=== PATIENT | female | born 1945 | race African-American/Black ===

== ENCOUNTER 2016-10-27 07:09 | Observation (INO) ==
--- NOTE | 2016-10-27 07:16 | Emergency Department Note ---
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 She has had something similar this once before she could not remember if it was her heart enzymes were elevated or if it was pleurisy. She has not had a fever she does feel short of breath Pt Subjective Complaint: other (epigastric pain radiating to her back) Onset (ago): day(s) (1) Consistency: constant Location: epigastric Pain Severity: moderate Pain Scale: 5 Quality: stabbing Radiation: back Migration to: no migration Improves with: nothing Worsens with: nothing Associated symptoms: Reports: denies other symptoms - Related Data Home Medications Medication Instructions Recorded Confirmed Calcium Carbonate/Vitamin D3 81 mg PO DAILY 04/24/15 10/27/16 [Calcium 500-Vit D3 400 Tablet] Loratadine [Claritin] 10 mg PO DAILY 04/24/15 10/27/16 Losartan [Cozaar] 25 mg PO DAILY 04/24/15 10/27/16 Paroxetine [Paxil] 20 mg PO DAILY 04/24/15 10/27/16 Ranitidine Oral Soln [Zantac] 150 mg PO DAILY 04/24/15 10/27/16 Simvastatin [Zocor] 40 mg PO HS 04/24/15 10/27/16 metFORMIN [Glucophage] 1,000 mg PO BIDWM 04/24/15 10/27/16 Aspirin [Adult Low Dose Aspirin EC] 81 mg PO DAILY 04/25/15 10/27/16 Previous Rx's Medication Instructions Recorded Omeprazole [PriLOSEC] 20 mg PO BIDAC #30 capsule. 04/24/15 Tramadol HCl [Ultram] 50 mg PO TID PRN #10 tab 01/31/16 Allergies Allergy/AdvReac Type Severity Reaction Status Date / Time celecoxib [From Celebrex] AdvReac Rash Verified 02/16/16 16:45 naproxen [From Aleve] AdvReac Rash Verified 02/16/16 16:45 pseudoephedrine AdvReac Rash Verified 02/16/16 16:45 [From Actifed] triprolidine [From Actifed] AdvReac Rash Verified 02/16/16 16:45 All systems ED: reviewed and negative except as stated. Review of Systems: As Per HPI Constitutional: Denies: fever, chills, weakness, weight change Eyes: Reports: as per HPI ENT ED: Denies: ear pain, throat pain, dental pain, hearing loss, epistaxis, congestion, dysphagia Cardiovascular: Reports: chest pain. Denies: palpitations, dyspnea on exertion , edema, syncope Respiratory: Denies: cough, dyspnea, wheezes, hemoptysis, stridor Gastrointestinal: Denies: abdominal pain, nausea, vomiting, diarrhea, constipation, hematemesis, melena, hematochezia Genitourinary: Denies: dysuria, frequency, hematuria, discharge Musculoskeletal: Denies: back pain, neck pain, arthralgia, myalgia Integumentary: Denies: rash, abrasion, lesions Neurological: Denies: headache, weakness, numbness, paresthesias, confusion, abnormal gait, vertigo Psychiatric: Denies: anxiety, depression, suicidal thoughts, homicidal thoughts , auditory hallucinations, visual hallucinations Endocrine: Denies: fatigue Hematological/Lymphatic: Denies: easy bleeding, easy bruising Allergic/Immunologic: Denies: facial swelling, urticaria Abdominal Pain PMH - Past Medical History Medical history: Reports: arthritis (axial skeleton), asthma, COPD, diabetes, GERD, hyperlipidemia, hypertension, other (Obstructive sleep apnea on CPAP, morbid obesity) Female Surgical History: Reports: other 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: Reports: bilateral tubal ligation Psychiatric history: Reports: depression - Social History Smoking status: Never smoker Alcohol use: Reports: none Drug use: Reports: none Physical Exam - General Limitations: no limitations General appearance: alert, in no apparent distress - Head Head exam: atraumatic, normocephalic, normal inspection - Eye Eye exam: Present: normal appearance, PERRL, EOMI - ENT ENT exam: normal exam, normal oropharynx, mucous membranes moist - Neck Neck exam: Present: normal inspection, full ROM, trachea midline - Chest Chest inspection: Present: normal inspection, symmetric chest wall rise - Respiratory Respiratory exam: Present: normal lung sounds bilaterally. Absent: respiratory distress - Cardiovascular Cardiovascular exam: Present: regular rate, normal rhythm, normal heart sounds - Abdominal Exam Abdominal exam: Present: soft, Non-Tender. Absent: tenderness, distention, guarding, rebound, rigidity - Neurological Exam Neurological exam: Present: alert, oriented X3 - Psychiatric Psychiatric exam: Present: normal affect - Skin Skin exam: Present: warm, dry Course Course Narrative: 0800: Care has been assumed from Dr. dailey. Old record is reviewed and she has had several presentations that have been similar. She did have a stress test that was reported to be negative at [facility]. She states that her discomfort is improved at this time "with the IV". 0825: The patient's lab, EKG and x-ray have been reviewed. Her EKG is unchanged from September 16. Her d-dimer is again elevated and a CT PE study will be repeated. She did have a CT PE study performed on September 16 that was negative. 0950: With return of the CT PE study, care has been discussed with Dr. Linares who is agreeable with observation of this patient for serial enzymes. This is discussed the patient and verbal orders have been obtained for her observation period Vital Signs Temperature 98.0 F 10/27/16 07:12 Pulse Rate 88 10/27/16 07:12 Respiratory Rate 18 10/27/16 07:12 Blood Pressure 137/67 10/27/16 07:12 O2 Sat by Pulse Oximetry 98 10/27/16 07:12 Temperature 98.0 F 10/27/16 07:12 Pulse Rate 61 10/27/16 09:32 Respiratory Rate 18 10/27/16 09:32 Blood Pressure 109/59 10/27/16 09:32 O2 Sat by Pulse Oximetry 98 10/27/16 09:32 Oxygen Delivery Oxygen Delivery Room Air Abdominal Pain - Medical Records Medical records reviewed: Yes I reviewed the patient's medical records. - Lab Data Lab results reviewed: Yes I reviewed the patient's lab results. Result diagrams: 10/27/16 07:25 10/27/16 07:25 Lab Results 10/27/16 10/27/16 10/27/16 Range/Units 07:25 07:25 07:25 WBC 8.6 (4.3-11.1) K/mcL RBC 4.14 (3.82-4.97) M/mcL Hgb 13.0 (11.5-15.4) g/dL Hct 38.5 (35.3-44.9) % MCV 93.0 (83.0-100.0) fL MCH 31.4 (28.0-33.3) pg MCHC 33.8 (31.6-35.5) g/dL RDW 13.3 (11.5-14.5) % Plt Count 304 (140-400) K/mcL MPV 9.4 (9.4-12.4) fL PT 10.6 (9.4-12.1) Seconds INR 1.0 APTT 33.2 (26.0-36.0) Seconds D-Dimer 1049 H (0-500) ng/mLFEU Sodium 139 (136-145) mEq/L Potassium 4.0 (3.5-4.5) mEq/L Chloride 104 (98-109) mEq/L Carbon Dioxide 25 (19-29) mEq/L BUN 6 L (7-20) mg/dL Creatinine 0.74 (0.57-1.11) mg/dL Est GFR ( Amer) > 60 (> 60) Est GFR (Non-Af Amer) > 60 (> 60) BUN/Creatinine Ratio 8 (6-26) Glucose 131 H (70-99) mg/dL Calculated Osmolality 287 (280-300) Calcium 9.1 (8.6-10.8) mg/dL Total Bilirubin 0.6 (0.2-1.2) mg/dL AST 17 (5-34) Units/L ALT 12 (0-55) Units/L Alkaline Phosphatase 96 (38-126) Units/L Troponin I (0-0.03) ng/mL Serum Total Protein 7.1 (6.0-8.3) g/dL Albumin 3.3 L (3.5-5.0) g/dL Globulin 3.8 H (2.4-3.5) g/dL Albumin/Globulin Ratio 0.9 L (1.1-2.2) Urine Color (Yellow) Urine Clarity (Clear) Urine pH (5.0-8.0) pH Units Ur Specific [place] (1.010-1.025) Urine Protein (Neg-Trace) mg/dL Urine Glucose (UA) (Normal) mg/dL Urine Ketones (Negative) mg/dL Urine Blood (Negative) Urine Nitrite (Negative) Urine Bilirubin (Negative) Urine Urobilinogen (Normal) mg/dL Ur Leukocyte Esterase (Negative) Urine Microscopic RBC (0-3) per hpf Urine Microscopic WBC (0-3) per hpf Ur Squamous Epith Cells (None-Few) per lpf Amorphous Sediment (Few) Urine Bacteria (None-Few) per hpf Urine Mucus (Few) Ur Culture Indicated? (NO) 10/27/16 10/27/16 Range/Units 07:25 08:27 WBC (4.3-11.1) K/mcL RBC (3.82-4.97) M/mcL Hgb (11.5-15.4) g/dL Hct (35.3-44.9) % MCV (83.0-100.0) fL MCH (28.0-33.3) pg MCHC (31.6-35.5) g/dL RDW (11.5-14.5) % Plt Count (140-400) K/mcL MPV (9.4-12.4) fL PT (9.4-12.1) Seconds INR APTT (26.0-36.0) Seconds D-Dimer (0-500) ng/mLFEU Sodium (136-145) mEq/L Potassium (3.5-4.5) mEq/L Chloride (98-109) mEq/L Carbon Dioxide (19-29) mEq/L BUN (7-20) mg/dL Creatinine (0.57-1.11) mg/dL Est GFR ( Amer) (> 60) Est GFR (Non-Af Amer) (> 60) BUN/Creatinine Ratio (6-26) Glucose (70-99) mg/dL Calculated Osmolality (280-300) Calcium (8.6-10.8) mg/dL Total Bilirubin (0.2-1.2) mg/dL AST (5-34) Units/L ALT (0-55) Units/L Alkaline Phosphatase (38-126) Units/L Troponin I 0.00 (0-0.03) ng/mL Serum Total Protein (6.0-8.3) g/dL Albumin (3.5-5.0) g/dL Globulin (2.4-3.5) g/dL Albumin/Globulin Ratio (1.1-2.2) Urine Color Yellow (Yellow) Urine Clarity Slightly Cloudy A (Clear) Urine pH 8.5 H (5.0-8.0) pH Units Ur Specific [place] 1.020 (1.010-1.025) Urine Protein Negative (Neg-Trace) mg/dL Urine Glucose (UA) Normal (Normal) mg/dL Urine Ketones Negative (Negative) mg/dL Urine Blood Negative (Negative) Urine Nitrite Negative (Negative) Urine Bilirubin Negative (Negative) Urine Urobilinogen Normal (Normal) mg/dL Ur Leukocyte Esterase Moderate H (Negative) Urine Microscopic RBC 3-5 H (0-3) per hpf Urine Microscopic WBC 15-30 H (0-3) per hpf Ur Squamous Epith Cells Few (None-Few) per lpf Amorphous Sediment Few (Few) Urine Bacteria Moderate H (None-Few) per hpf Urine Mucus Few (Few) Ur Culture Indicated? YES A (NO) - Radiology Data Radiology results reviewed: Yes I reviewed the patient's radiology results. Single view chest x-ray is performed. This does not demonstrate evidence for infiltrate, effusion, pneumothorax, foreign body or heart failure. The cardiac silhouette is normal. I do not see abnormality to the osseous structures of the chest. This is on my interpretation. Radiologist impression: XR/XR chest 1V portable IMPRESSION: Minimal bibasilar atelectasis. D/ / Andrea Lazcano MD / Andrea Lazcano MD Impressions Chest X-Ray 10/27/16 07:21 IMPRESSION: Minimal bibasilar atelectasis. D/ / Andrea Lazcano MD / Andrea Lazcano MD Interpreting Provider: Andrea Lazcano MD Chest CTA 10/27/16 08:24 IMPRESSION: No evidence of pulmonary embolism or acute pulmonary abnormality. Right thyroid lobe nodule measures at least 1.6 cm. D/ / Natalia Lewis MD / Natalia Lewis MD Interpreting Provider: Natalia Lewis MD - EKG Data EKG attestation: Yes I reviewed and interpreted this EKG. EKG shows normal: sinus rhythm, axis, intervals, QRS complexes, ST-T waves Rate: normal (69) Interpretation: no acute changes, unchanged when compared to prior tracing (date ) (09/16/2016.)
[2016-10-27] MEDS ORDERED: 0.9 % Sodium Chloride 500 ML IVC SCH ×2 (07:30→11:40)
[2016-10-27 07:38] LABS: Hematocrit 38.5 % (35.3-44.9); Mean Corpuscular HGB Conc 33.8 g/dL (31.6-35.5); Mean Corpuscular Hemoglobin 31.4 pg (28.0-33.3); Mean Platelet Volume 9.4 fL (9.4-12.4); Platelet Count 304 K/mcL (140-400); Red Blood Count 4.14 M/mcL (3.82-4.97); Red Cell Distribution Width 13.3 % (11.5-14.5)
[2016-10-27 07:50] LABS: Prothrombin Time 10.6 Seconds (9.4-12.1)
[2016-10-27 07:52] LABS: Activated Partial Thrombo Time 33.2 Seconds (26.0-36.0)
[2016-10-27 08:14] LABS: Alanine Aminotransferase 12 Units/L (0-55); Albumin 3.3 g/dL (3.5-5.0); Albumin/Globulin Ratio 0.9 (1.1-2.2); Alkaline Phosphatase 96 Units/L (38-126); Aspartate Amino Transferase 17 Units/L (5-34); BUN/Creatinine Ratio 8 (6-26); Bilirubin,Total 0.6 mg/dL (0.2-1.2); Blood Urea Nitrogen 6 mg/dL (7-20); Calcium 9.1 mg/dL (8.6-10.8); Carbon Dioxide 25 mEq/L (19-29); Chloride 104 mEq/L (98-109); Globulin 3.8 g/dL (2.4-3.5); Glucose 131 mg/dL (70-99); Osmolality,Calculated 287 (280-300); Sodium 139 mEq/L (136-145); Total Protein 7.1 g/dL (6.0-8.3); eGFR For African Americans > 60 (> 60); eGFR For Non-African Americans > 60 (> 60)
[2016-10-27 08:40] LABS: Bilirubin,Urine Negative (Negative); Blood,Urine Negative (Negative); Clarity,Urine Slightly Cloudy (Clear); Color,Urine Yellow (Yellow); Glucose,Urine (UA) Normal (Normal); Ketones,Urine Negative (Negative); Leukocyte Esterase,Urine Moderate (Negative); Nitrite,Urine Negative (Negative); PH,Urine 8.5 pH Units (5.0-8.0); Protein,Urine Negative (Neg-Trace); Urobilinogen,Urine Normal (Normal)
[2016-10-27 08:51] LABS: Amorphous Sediment,Urine Few (Few); Bacteria,Urine Moderate per hpf (None-Few); Mucus,Urine Few (Few); Squamous Epithelial Cell,Urine Few per lpf (None-Few); WBC,Urine 15-30 per hpf (0-3)
[2016-10-27] MEDS ORDERED: Aspirin 81 MG TAB.CHEW PO SCH (09:00)
[2016-10-27] MEDS ORDERED: traMADol 50 MG TABLET PO PRN ×2 (11:40→15:37)
[2016-10-27] MEDS ORDERED: MOM Conc 10 ML UD.LIQ PO PRN (11:40)
[2016-10-27] MEDS ORDERED: Acetaminophen 325 MG TABLET PO PRN (11:40)
[2016-10-27] MEDS ORDERED: Naloxone 0.4 MG/ML INJ IVP PRN (11:40)
[2016-10-27] MEDS ORDERED: Ondansetron 4 MG/2 ML VIAL IVP PRN (11:40)
--- NOTE | 2016-10-27 15:43 | Internal Med History&Physical ---
Date of Encounter: 10/27/16 Time of Encounter: 15:10 Assessment and Plan (1) Chest pain Current visit: No Status: Acute Doubt cardiac origin. Suspect chest wall etiology. She will be given prednisone and when necessary tramadol. Qualifiers: Chest pain type: unspecified Qualified Code(s): R07.9 - Chest pain, unspecified (2) Hypertension Current visit: Yes Status: Chronic Continue Cozaar and monitor blood pressure. Qualifiers: Hypertension type: essential hypertension Qualified Code(s): I10 - Essential (primary) hypertension Internal Medicine - H&P: HPI Chief complaint: Back and chest pain Admitted From: Home Plans for Post Hospital Care: Home History of present illness: Ms. Smith is a 71 year old female who came to emergency room stating she had back and chest discomfort onset yesterday. She had done no unusual activities prior to the pain. She had minimal dyspnea and breathing and cough associated. She states she has not had previous similar pains. She was evaluated emergency room and admitted to [facility] floor for ongoing care needs. She was hospitalized last at [facility] September 2015 with chest pain felt to be noncardiac in origin. I felt it was likely chest wall origin and she was treated with steroids since she had allergies to several NSAIDs. Her cardiovascular history is significant for hypertension but no known SC. She reports 2 heart caths, most recent one in 2010 with medical therapy recommended. She has not had DVT pulmonary embolus or heart failure. Past Med Surg Social Fam HX - Past Medical History Medical history: arthritis (axial skeleton), asthma, COPD, diabetes, GERD, hyperlipidemia, hypertension, other (Obstructive sleep apnea on CPAP, morbid obesity) Psychiatric history: depression - Past Surgical History Surgical History: cholecystectomy, orthopedic, other, other - Social History Smoking Status: Never smoker Smokeless Tobacco Status: No Alcohol use: none Drug use: none - Family History Mother Hx Family Cardiac Disorders: Yes Hx Family Cancer: Yes Hx Family Endocrine Disorder: Yes Internal Medicine - H&P: Meds Calcium Carbonate/Vitamin D3 [Calcium 500-Vit D3 400 Tablet] 81 mg PO DAILY 10/01 [History] Loratadine [Claritin] 10 mg PO DAILY 04/24/15 [History] Losartan [Cozaar] 25 mg PO DAILY 04/24/15 [History] Omeprazole [PriLOSEC] 20 mg PO BIDAC #30 capsule. 04/24/15 [Rx] Paroxetine [Paxil] 20 mg PO DAILY 04/24/15 [History] Ranitidine Oral Soln [Zantac] 150 mg PO DAILY 04/24/15 [History] Simvastatin [Zocor] 40 mg PO HS 04/24/15 [History] metFORMIN [Glucophage] 1,000 mg PO BIDWM 04/24/15 [History] Aspirin [Adult Low Dose Aspirin EC] 81 mg PO DAILY 04/25/15 [History] Tramadol HCl [Ultram] 50 mg PO TID PRN #10 tab 01/31/16 [Rx] 3 Allergy/AdvReac Type Severity Reaction Status Date / Time celecoxib [From Celebrex] AdvReac Rash Verified 02/16/16 16:45 naproxen [From Aleve] AdvReac Rash Verified 02/16/16 16:45 pseudoephedrine AdvReac Rash Verified 02/16/16 16:45 [From Actifed] triprolidine [From Actifed] AdvReac Rash Verified 02/16/16 16:45 All Systems PM: A 10-system review of systems was performed and is negative for pertinent findings except as documented above in the HPI. Review of systems: Review of systems from her September 2015 [facility] hospitalization were reviewed and revised as below. Gen.: Her weight has increased from 113.171 kg on 10/13/2015 to 117.934 kg on admission Cardiovascular: As per history of present illness Respiratory: She smoked from age [age] up to 3 packs per day. She has a diagnosis of COPD/bronchitis and asthma but does not wear home oxygen. 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 She had colonoscopy in 2009 which was normal per her report. She has GERD. She denies disorders of her liver or exocrine pancreas : She has had numerous UTIs in the past. She denies other kidney or bladder disorders Neurologic: She denies large distribution strokes or seizures Endocrine: She was diagnosed with DM 2 more than 30 years ago. She has hyperlipidemia but no known thyroid disease Hematology/oncology: She denies blood disorders cancers or anemia Psychiatric: She has depression but denies anxiety or other mental health issues [place] skeletal: She has DJD but no known gout or osteoporosis. - Constitutional Vitals: Temp Pulse Resp BP Pulse Ox 98.0 F 62 18 106/67 98 10/27/16 11:03 10/27/16 11:00 10/27/16 11:03 10/27/16 11:03 10/27/16 11:00 Exam: Neuro: She is a well-developed well-nourished female lying in bed who appears in mild to moderate pain on movement HEENT: Head is atraumatic and normocephalic. Eyes: EOMI. There is no scleral icterus. Mouth: Mucosa is moist. Neck: Supple and nontender. There is no thyromegaly or adenopathy noted. Heart: Regular without murmurs gallops or ectopics Lungs: No wheezes or crackles are heard. Chest: She has mild tenderness in her costosternal joints. She has pain on compression of the anterior lateral costal margin on the left side stating " that is the pain". Abdomen: Soft and nontender. No masses or guarding noted. Extremities: There is no cyanosis edema or clubbing noted. Dorsalis pedis and posttibial pulses are trace palpable bilaterally. Neurologic: Mental status: She is talkative and a good historian. Cranial nerves: Smile is symmetric. Forehead wrinkles bilaterally. Tongue protrudes midline. EOMI. Motor: There is no pronator drift. Cerebellar: Finger to nose is intact bilaterally. Skin: Warm and dry Internal Med - H&P Results - Labs CBC & Chem 7: 10/27/16 07:25 10/27/16 07:25 Labs: Cardiac Enzymes 10/27/16 Range/Units 13:22 Troponin I 0.00 (0-0.03) ng/mL - VTE Documentation of Mechanical Device: Intermittent pneumatic compression device
[2016-10-27] MEDS: predniSONE 20 MG TABLET PO SCH (16:16)
[2016-10-27] MEDS: *HR* Metformin 500 MG TABLET PO SCH (16:16)
--- NOTE | 2016-10-27 18:05 | Electrocardiograph Report ---
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
[2016-10-27] MEDS: Acetaminophen 325 MG TABLET PO SCH ×2 (18:52→23:15)
[2016-10-28] MEDS: Acetaminophen 325 MG TABLET PO SCH (06:10)
[2016-10-28 06:54] VITALS: BP 136/73
[2016-10-28] MEDS: *HR* Metformin 500 MG TABLET PO SCH (08:00)
[2016-10-28] MEDS: predniSONE 20 MG TABLET PO SCH (08:01)
[2016-10-28] MEDS ORDERED: Aspirin 81 MG TAB.CHEW PO SCH (09:00)
[2016-10-28] MEDS ORDERED: Loratadine 10 MG TABLET PO SCH (09:00)
[2016-10-28] MEDS ORDERED: Aspirin Enteric Coated 81 MG Tablet PO SCH (09:00)
--- NOTE | 2016-10-28 09:38 | Discharge Summary ---
Date of Encounter: 10/28/16 Time of Encounter: 09:30 - Discharge Diagnosis (1) Chest pain Priority: Primary Status: Resolved Qualifiers: Chest pain type: unspecified Qualified Code(s): R07.9 - Chest pain, unspecified (2) Hypertension Priority: Secondary Status: Chronic Qualifiers: Hypertension type: essential hypertension Qualified Code(s): I10 - Essential (primary) hypertension - Discharge Medications Prescriptions: predniSONE [PredniSONE] 20 mg PO DAILY #2 tab Tramadol HCl [Ultram] 50 mg PO TID PRN #6 tab PRN Reason: Pain Home Medications: Calcium Carbonate/Vitamin D3 [Calcium 500-Vit D3 400 Tablet] 81 mg PO DAILY 10/01 [History] Loratadine [Claritin] 10 mg PO DAILY 04/24/15 [History] Losartan [Cozaar] 25 mg PO DAILY 04/24/15 [History] Omeprazole [PriLOSEC] 20 mg PO BIDAC #30 capsule.dr 04/24/15 [Rx] Paroxetine [Paxil] 20 mg PO DAILY 04/24/15 [History] Ranitidine Oral Soln [Zantac] 150 mg PO DAILY 04/24/15 [History] Simvastatin [Zocor] 40 mg PO HS 04/24/15 [History] metFORMIN [Glucophage] 1,000 mg PO BIDWM 04/24/15 [History] Aspirin [Adult Low Dose Aspirin EC] 81 mg PO DAILY 04/25/15 [History] Tramadol HCl [Ultram] 50 mg PO TID PRN #6 tab 10/28/16 [Rx] predniSONE [PredniSONE] 20 mg PO DAILY #2 tab 10/28/16 [Rx] Allergies/Adverse Reactions: 3 Allergy/AdvReac Type Severity Reaction Status Date / Time celecoxib [From Celebrex] AdvReac Rash Verified 02/16/16 16:45 naproxen [From Aleve] AdvReac Rash Verified 02/16/16 16:45 pseudoephedrine AdvReac Rash Verified 02/16/16 16:45 [From Actifed] triprolidine [From Actifed] AdvReac Rash Verified 02/16/16 16:45 Date of admission: 10/27/16 10:39 Primary care physician: Pat Mejia CNP - Patient Status Disposition: Home, Self-Care Condition: Good Functional capacity at discharge: independent ambulation Overall status at discharge: patient is progressing back to baseline - Discharge Instructions Follow Up With: Pat Mejia CNP [Primary Care Provider] - 1 week - Diet and Activity Activity: resume usual activities as tolerated Diet: advance to your usual diet Hospital course: Ms. Smith is a 71 year old female who came to emergency room stating she had back and chest discomfort onset yesterday. She had done no unusual activities prior to the pain. She had minimal dyspnea and breathing and cough associated. She states she has not had previous similar pains. She was evaluated emergency room and admitted to [facility] for ongoing care needs. Initial orders were written by the emergency room physician. I saw her on October 27 and performed the history and physical. Repeat cardiac enzymes showed no evidence of myocardial damage. When I saw her I felt she likely had pain from chest wall origin. She was given prednisone 20 mg and her pain had resolved by the following day. She felt stable for discharge home which I felt was reasonable. She will continue with prednisone for 2 additional days at discharge. I also prescribed 6 tramadol pills for prn use. She will follow with her PCP Pat Mejia CNP within 1 week. - Time Spent with Patient Total time spent providing and/or coordinating discharge services: - Constitutional Vitals: Temp Pulse Resp BP Pulse Ox 97.6 F 56 16 136/73 95 10/28/16 06:51 10/28/16 06:51 10/28/16 06:51 10/28/16 06:51 10/28/16 06:51 - VTE Documentation of Mechanical Device: Intermittent pneumatic compression device
== END 2016-10-28 10:55 | disposition home or self-care (01) ==
LOC: INPPIK 07:09 → EMEROOPIK 07:09 → INPPIK 11:03
PROVIDERS: ADMIT Emergency Medicine; ATTEND Internal Medicine

== ENCOUNTER 2018-03-14 19:01 | Observation (INO) ==
--- NOTE | 2018-03-14 19:22 | Emergency Department Note ---
Disposition Clinical Impression: Chest pain Disposition: Admitted As Inpatient Condition: Fair Time of Disposition: 22:29 SOB HPI - General Chief Complaint: ED Shortness of Breath/Dyspnea Stated Complaint: sob Time Seen by Provider: 03/14/18 19:15 Source: patient Mode of arrival: ambulatory Limitations: no limitations Nursing Notes Reviewed: Yes Vital Signs Reviewed: Yes - History of Present Illness 72-year-old female presents to the emergency room who was seen by Dr. barnhart AT the local urgent care who was sent up to the ER for chest pain patient opted to drive up herself she denies any blurred vision double vision patient states the pain is worse with respiration worse with movement worse on the right than it is on the left no nausea no vomiting no diaphoresis patient states that if she does cough she does bring up a little bit of phlegm she states that she feels like this could be her heart she denies anything that makes it better nothing makes it worse she denies any calf pain swelling edema noted she denies any rashes or lesions she then later recalls that she had some leg pain about 3 days ago. Patient states though years ago she was told that she is at risk for a pulmonary emboli she denies numbness tingling weakness recent weight gain or weight loss all systems have been reviewed and are otherwise negative Pt Subjective Complaint: chest pain Onset (ago): day(s) Context: occurred during exertion Severity: moderate Consistency/Duration: constant Improves with: nothing Worsens with: nothing Known history of: COPD Associated symptoms: Reports: chest pain, pain with inspiration, lower extremity pain (3 days ago resolved). Denies: fever, cough, wheezing, sputum production, orthopnea, polyuria, polydipsia, parasthesias, palpitations, hemoptysis, d iaphoresis, nausea/vomiting, syncope, abdominal pain, rash, sense of impending doom Treatment prior to arrival: other (Baby aspirin urgent care sent to the ER) Cough present: No Sputum production: No - Related Data Home Medications Medication Instructions Recorded Confirmed Loratadine [Claritin] 10 mg PO DAILY 04/24/15 03/14/18 Paroxetine [Paxil] 20 mg PO DAILY 04/24/15 03/14/18 Simvastatin [Zocor] 40 mg PO HS 04/24/15 03/14/18 Aspirin [Adult Low Dose Aspirin EC] 81 mg PO DAILY 04/25/15 08/19/17 Fluticasone/Vilanterol [Breo 1 puff IH DAILY 03/11/17 08/19/17 Ellipta 100-25 Mcg INH] Lansoprazole [Prevacid] 30 mg PO DAILY 03/11/17 08/19/17 Latanoprost [Xalatan] 1 drop BOTH EYES HS 03/11/17 08/19/17 Losartan Potassium [Cozaar] 50 mg PO DAILY 03/11/17 03/14/18 Meloxicam 15 mg PO DAILY 03/11/17 03/14/18 Metformin HCl [Glucophage] 1,000 mg PO BID 03/11/17 03/14/18 Montelukast [Singulair] 10 mg PO HS 03/11/17 03/14/18 Ranitidine HCl [Acid Photolithographic Stripper] 150 mg PO BID 03/11/17 03/14/18 Allergies Allergy/AdvReac Type Severity Reaction Status Date / Time Benzonatate AdvReac Rash Verified 03/14/18 18:00 [From Tessalon Perles] celecoxib [From Celebrex] AdvReac Rash Verified 03/14/18 18:00 naproxen [From Aleve] AdvReac Rash Verified 03/14/18 18:00 pseudoephedrine AdvReac Rash Verified 03/14/18 18:00 [From Actifed] triprolidine [From Actifed] AdvReac Rash Verified 03/14/18 18:00 All systems ED: reviewed and negative except as stated. Review of Systems: As Per HPI Constitutional: Denies: fever, chills, weakness Eyes: Denies: eye pain ENT ED: Denies: throat pain, congestion Cardiovascular: Reports: chest pain, palpitations, dyspnea on exertion Respiratory: Denies: cough, dyspnea, wheezes, sputum production Gastrointestinal: Denies: abdominal pain, nausea, vomiting Genitourinary: Denies: urgency, dysuria, frequency Musculoskeletal: Denies: back pain, neck pain Integumentary: Denies: rash, abrasion Neurological: Denies: headache Psychiatric: Reports: anxiety. Denies: depression Endocrine: Denies: fatigue Hematological/Lymphatic: Denies: easy bleeding Allergic/Immunologic: Denies: facial swelling Past Medical History - Past Medical History Attestation: Yes The following information was validated with the patient. 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 history: Reports: bilateral tubal ligation - Social History Smoking Status: Never smoker Smokeless Tobacco Status: No Alcohol use: Reports: none Drug use: Reports: none Physical Exam - General Limitations: no limitations General appearance: alert, in no apparent distress - Head Head exam: atraumatic, normocephalic, normal inspection - Eye Eye exam: Present: normal appearance, PERRL, EOMI - ENT ENT exam: normal exam, normal oropharynx, mucous membranes moist, TM's normal bilaterally, normal external ear exam - Neck Neck exam: Present: normal inspection, full ROM, trachea midline - Chest Chest inspection: Present: normal inspection, symmetric chest wall rise, tenderness - Respiratory Respiratory exam: Present: normal lung sounds bilaterally - Cardiovascular Cardiovascular exam: Present: regular rate, normal rhythm, normal heart sounds - Abdominal Exam Abdominal exam: Present: soft, Non-Tender, normal bowel sounds. Absent: mass, pulsatile mass - Extremities Exam Extremities exam: Present: normal inspection, full ROM, normal capillary refill, other (Negative). Absent: tenderness, pedal edema, joint swelling, calf tenderness - Expanded Lower Extremity Exam Gait: observed and normal - Back Exam Back exam: Present: normal inspection, full ROM. Absent: muscle spasm - Neurological Exam Neurological exam: Present: alert, oriented X3, CN II-XII intact, normal gait - Psychiatric Psychiatric exam: Present: normal affect, normal mood - Skin Skin exam: Present: warm, dry, intact, normal color Course Course Narrative: Patient was seen and examined laboratory data was done patient had an elevated d-dimer which was followed by a PE study with results having been obtained patient still had some intermittent chest pain as result we manage her overnight will do serial enzyme makeshift there is no relation troponin patient's had no EKG changes patient is resting comfortably at this time patient received IV Nubain and Zofran for Vital Signs Temperature 98.0 F 03/14/18 19:07 Pulse Rate 86 03/14/18 19:07 Respiratory Rate 16 03/14/18 19:07 Blood Pressure 145/74 03/14/18 19:07 O2 Sat by Pulse Oximetry 96 03/14/18 19:07 Temperature 98.0 F 03/14/18 19:07 Pulse Rate 68 03/14/18 22:21 Respiratory Rate 18 03/14/18 22:21 Blood Pressure 170/75 03/14/18 22:21 O2 Sat by Pulse Oximetry 96 03/14/18 22:21 Oxygen Delivery Oxygen Delivery Room Air Shortness of Breath/Dyspnea - MDM Narrative Medical decision making narrative: Chest pain pneumonia pneumothorax pe gastrointestinal - Medical Records Medical records reviewed: Yes I reviewed the patient's medical records. - Lab Data Lab results reviewed: Yes I reviewed the patient's lab results. Result diagrams: 03/14/18 19:37 03/14/18 19:37 Lab Results 03/14/18 03/14/18 03/14/18 Range/Units 19:37 19:37 19:37 WBC 8.6 (4.3-11.1) K/mcL RBC 4.45 (3.82-4.97) M/mcL Hgb 13.9 (11.5-15.4) g/dL Hct 41.4 (35.3-44.9) % MCV 93.0 (83.0-100.0) fL MCH 31.2 (28.0-33.3) pg MCHC 33.6 (31.6-35.5) g/dL RDW 13.2 (11.5-14.5) % Plt Count 338 (140-400) K/mcL MPV 9.7 (9.4-12.4) fL Immature Gran % 0.2 (0-4) % Seg Neutrophils % 61.2 % Lymphocytes % 30.1 % Monocytes % 6.6 % Eosinophils % 1.6 % Basophils % 0.3 % Neutrophils # 5.2 (1.6-8.9) K/mcL Lymphocytes # 2.6 (0.6-4.6) K/mcL Monocytes # 0.6 (0.0-1.3) K/mcL Eosinophils # 0.1 (0.0-0.6) K/mcL Basophils # 0.0 (0.0-0.2) K/mcL PT 11.3 (9.4-12.1) Seconds INR 1.0 APTT 33.9 (26.0-36.0) Seconds D-Dimer 974 H (0-500) ng/mLFEU Sodium 136 (136-145) mEq/L Potassium 3.5 (3.5-5.1) mEq/L Chloride 101 (98-107) mEq/L Carbon Dioxide 28 (23-29) mEq/L BUN 9 (8-23) mg/dL Creatinine 0.66 (0.60-1.20) mg/dL Est GFR ( Amer) > 60 (> 60) Est GFR (Non-Af Amer) > 60 (> 60) BUN/Creatinine Ratio 14 (6-26) Glucose 121 H (70-105) mg/dL Calculated Osmolality 282 (280-300) Calcium 9.5 (8.6-10.3) mg/dL Total Bilirubin 0.3 (0.3-1.0) mg/dL AST 15 (13-39) Units/L ALT 9 (7-52) Units/L Alkaline Phosphatase 92 (34-104) Units/L Troponin I < 0.03 (< 0.04) ng/mL B-Natriuretic Peptide (Less than 100) pg/mL Serum Total Protein 7.3 (6.4-8.9) g/dL Albumin 3.9 (3.5-5.7) g/dL Globulin 3.4 (2.4-3.5) g/dL Albumin/Globulin Ratio 1.1 (1.1-2.2) 03/14/18 Range/Units 19:37 WBC (4.3-11.1) K/mcL RBC (3.82-4.97) M/mcL Hgb (11.5-15.4) g/dL Hct (35.3-44.9) % MCV (83.0-100.0) fL MCH (28.0-33.3) pg MCHC (31.6-35.5) g/dL RDW (11.5-14.5) % Plt Count (140-400) K/mcL MPV (9.4-12.4) fL Immature Gran % (0-4) % Seg Neutrophils % % Lymphocytes % % Monocytes % % Eosinophils % % Basophils % % Neutrophils # (1.6-8.9) K/mcL Lymphocytes # (0.6-4.6) K/mcL Monocytes # (0.0-1.3) K/mcL Eosinophils # (0.0-0.6) K/mcL Basophils # (0.0-0.2) K/mcL PT (9.4-12.1) Seconds INR APTT (26.0-36.0) Seconds D-Dimer (0-500) ng/mLFEU Sodium (136-145) mEq/L Potassium (3.5-5.1) mEq/L Chloride (98-107) mEq/L Carbon Dioxide (23-29) mEq/L BUN (8-23) mg/dL Creatinine (0.60-1.20) mg/dL Est GFR ( Amer) (> 60) Est GFR (Non-Af Amer) (> 60) BUN/Creatinine Ratio (6-26) Glucose (70-105) mg/dL Calculated Osmolality (280-300) Calcium (8.6-10.3) mg/dL Total Bilirubin (0.3-1.0) mg/dL AST (13-39) Units/L ALT (7-52) Units/L Alkaline Phosphatase (34-104) Units/L Troponin I (< 0.04) ng/mL B-Natriuretic Peptide 41 (Less than 100) pg/mL Serum Total Protein (6.4-8.9) g/dL Albumin (3.5-5.7) g/dL Globulin (2.4-3.5) g/dL Albumin/Globulin Ratio (1.1-2.2) - Radiology Data Radiology results reviewed: Yes I reviewed the patient's radiology results. ITS Impressions Chest X-Ray 03/14/18 19:16 IMPRESSION: No acute process. D/ / Felipe Pope MD / Felipe Pope MD Interpreting Provider: Felipe Pope MD Chest CTA 03/14/18 20:56 IMPRESSION: 1. Negative CT angiogram for acute pulmonary embolism. 2. No acute cardiopulmonary process identified. D/ / Galen Alexander MD / Galen Alexander MD Interpreting Provider: Galen Alexander MD - EKG Data EKG attestation: Yes I reviewed and interpreted this EKG. EKG results narrative: EKG prior to arrival sinus rhythm rate 93 MD 181 QRS 93 QT 335 axis -[address] segment elevation ischemic or injury pattern noted repeat EKG upon arrival here sinus rhythm rate of 89 MD 175-90 QT 332 access -1 Critical Care Time Critical Care Time: No
[2018-03-14 20:21] LABS: Basophils % 0.3 %; Eosinophils # 0.1 K/mcL (0.0-0.6); Eosinophils % 1.6 %; Hematocrit 41.4 % (35.3-44.9); Hemoglobin 13.9 g/dL (11.5-15.4); Immature Granulocytes % 0.2 % (0-4); Lymphocytes # 2.6 K/mcL (0.6-4.6); Lymphocytes % 30.1 %; Mean Corpuscular HGB Conc 33.6 g/dL (31.6-35.5); Mean Corpuscular Hemoglobin 31.2 pg (28.0-33.3); Mean Platelet Volume 9.7 fL (9.4-12.4); Monocytes # 0.6 K/mcL (0.0-1.3); Monocytes % 6.6 %; Neutrophils # 5.2 K/mcL (1.6-8.9); Platelet Count 338 K/mcL (140-400); Red Blood Count 4.45 M/mcL (3.82-4.97); Red Cell Distribution Width 13.2 % (11.5-14.5); Segmented Neutrophils % 61.2 %
[2018-03-14 20:31] LABS: Prothrombin Time 11.3 Seconds (9.4-12.1)
[2018-03-14 20:34] LABS: Activated Partial Thrombo Time 33.9 Seconds (26.0-36.0)
[2018-03-14 20:40] LABS: Alanine Aminotransferase 9 Units/L (7-52); Albumin 3.9 g/dL (3.5-5.7); Albumin/Globulin Ratio 1.1 (1.1-2.2); Alkaline Phosphatase 92 Units/L (34-104); Aspartate Amino Transferase 15 Units/L (13-39); BUN/Creatinine Ratio 14 (6-26); Bilirubin,Total 0.3 mg/dL (0.3-1.0); Blood Urea Nitrogen 9 mg/dL (8-23); Calcium 9.5 mg/dL (8.6-10.3); Carbon Dioxide 28 mEq/L (23-29); Chloride 101 mEq/L (98-107); Globulin 3.4 g/dL (2.4-3.5); Glucose 121 mg/dL (70-105); Osmolality,Calculated 282 (280-300); Potassium 3.5 mEq/L (3.5-5.1); Sodium 136 mEq/L (136-145); Total Protein 7.3 g/dL (6.4-8.9); eGFR For Non-African Americans > 60 (> 60)
[2018-03-14 20:43] LABS: Troponin I < 0.03 ng/mL (< 0.04)
[2018-03-14] MEDS ORDERED: Isovue-370 500 ML BOTTLE IVP ONE ×2 (20:56→23:00)
[2018-03-14] MEDS ORDERED: ISOVUE-370 100 ML INFUS..BTL IVP ONE (21:05)
[2018-03-14] MEDS ORDERED: Ondansetron 4 MG/2 ML VIAL IVP ONE (22:24)
[2018-03-14] MEDS ORDERED: *HR* Nalbuphine 10 MG/ML AMPUL IVP STA (22:24)
[2018-03-14] MEDS ORDERED: Naloxone 0.4 MG/ML INJ IVP PRN (23:00)
[2018-03-15] MEDS: Famotidine 20 MG TABLET PO SCH ×2 (05:51→18:14)
[2018-03-15] MEDS ORDERED: Loratadine 10 MG TABLET PO SCH (09:00)
[2018-03-15] MEDS: *HR* Metformin 500 MG TABLET PO SCH ×2 (10:56→18:14)
[2018-03-15] MEDS: Aspirin Enteric Coated 81 MG Tablet PO SCH (10:56)
--- NOTE | 2018-03-15 12:49 | Internal Med History&Physical ---
Date of Encounter: 03/15/18 Time of Encounter: 12:25 Assessment and Plan (1) Right flank pain Current visit: Yes Status: Acute Chest CTA showed no evidence of pulmonary embolism or other worrisome lung pathology. Lipase and UA/C&S will be ordered. (2) Hypertension Current visit: No Status: Chronic Continue Cozaar Qualifiers: Hypertension type: essential hypertension Qualified Code(s): I10 - Essential (primary) hypertension Internal Medicine - H&P: HPI Chief complaint: Right flank pain Admitted From: Emergency Dept Plans for Post Hospital Care: Home History of present illness: Ms. Smith is a 72 year old female came to emergency room stating she had sudden onset of right flank pain while lying in bed approximately 0700 the day of admission. She states the pain did not radiate. She rates the severity as a 10/10. There was some shortness of breath associated. She denies cough fevers chills vomiting or diarrhea. When the pain did not resolve she came to emergency room and was evaluated. She was admitted to [facility] floor for ongoing care needs. She denies previous similar pains. He states the pain is still at a level of 8/10. She denies any known injuries. Past Med Surg Social Fam HX - Past Medical History Medical history: arthritis, asthma, COPD, diabetes, hyperlipidemia, hypertension, thyroid disease Psychiatric history: depression - Past Surgical History Surgical History: cholecystectomy, orthopedic, other, other Additional surgical history: bilateral shoulder sx. right foot spur removed. - Social History Smoking Status: Former smoker Smokeless Tobacco Status: No Alcohol use: none Drug use: none - Family History Mother Hx Family Cardiac Disorders: Yes Hx Family Cancer: Yes Hx Family Endocrine Disorder: Yes Internal Medicine - H&P: Meds Loratadine [Claritin] 10 mg PO DAILY 04/24/15 [History] Paroxetine [Paxil] 20 mg PO DAILY 04/24/15 [History] Simvastatin [Zocor] 40 mg PO HS 04/24/15 [History] Aspirin [Adult Low Dose Aspirin EC] 81 mg PO DAILY 04/25/15 [History] Fluticasone/Vilanterol [Breo Ellipta 100-25 Mcg INH] 1 puff IH DAILY 03/11/17 [History] Lansoprazole [Prevacid] 30 mg PO DAILY 03/11/17 [History] Latanoprost [Xalatan] 1 drop BOTH EYES HS 03/11/17 [History] Losartan Potassium [Cozaar] 50 mg PO DAILY 03/11/17 [History] Meloxicam 15 mg PO DAILY 03/11/17 [History] Metformin HCl [Glucophage] 1,000 mg PO BID 03/11/17 [History] Montelukast [Singulair] 10 mg PO HS 03/11/17 [History] Ranitidine HCl [Acid Magnet Valve Assembler] 150 mg PO BID 03/11/17 [History] Allergy/AdvReac Type Severity Reaction Status Date / Time Benzonatate AdvReac Rash Verified 03/14/18 18:00 [From Tessalon Perles] celecoxib [From Celebrex] AdvReac Rash Verified 03/14/18 18:00 naproxen [From Aleve] AdvReac Rash Verified 03/14/18 18:00 pseudoephedrine AdvReac Rash Verified 03/14/18 18:00 [From Actifed] triprolidine [From Actifed] AdvReac Rash Verified 03/14/18 18:00 All Systems PM: A 10-system review of systems was performed and is negative for pertinent findings except as documented above in the HPI. Review of systems: Review of systems from her October 2016 [facility] hospitalization were reviewed and revised as below. Gen.: Her weight has minimally changed from 113.171 kg on 10/13/2015 to 112.945 kg on admission now Cardiovascular: She has hypertension but no known [place]. She reports 2 heart caths, most recent one in 2010 with medical therapy recommended. She has not had DVT pulmonary embolus or heart failure. Respiratory: She smoked from age [age] up to 3 packs per day. She has a diagnosis of COPD/bronchitis and asthma but does not wear home oxygen. 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 She had colonoscopy in 2009 which was normal per her report. She has GERD. She denies disorders of her liver or exocrine pancreas : She has had numerous UTIs in the past. She denies other kidney or bladder disorders Neurologic: She denies large distribution strokes or seizures Endocrine: She was diagnosed with DM 2 more than 30 years ago. She has hyperlipidemia but no known thyroid disease Hematology/oncology: She denies blood disorders cancers or anemia Psychiatric: She has depression but denies anxiety or other mental health issues Musk skeletal: She has DJD but no known gout or osteoporosis. - Constitutional Vitals: Temp Pulse Resp BP Pulse Ox 97.5 F L 68 15 129/62 90 03/15/18 11:55 03/15/18 11:55 03/15/18 11:55 03/15/18 11:55 03/15/18 11:55 Exam: Gen.: She is a well-developed overweight female lying in bed who appears in mild distress with movement HEENT: Head is atraumatic and normocephalic. Eyes: EOMI. There is no scleral icterus. Mouth: Mucosa is moist. Neck: Supple and nontender. There is no thyromegaly or adenopathy noted. Heart: Regular without murmurs gallops or ectopics Lungs: No wheezes or crackles are heard. Back: She has tenderness over percussing the right lower flank area. There is no pain on percussing over the left flank. Abdomen: Soft and nontender. No masses or guarding are noted. Extremities: There is no cyanosis edema or clubbing noted. Dorsalis pedis and posttibial pulses are trace palpable bilaterally. Neurologic: Mental status: She is talkative and a good historian. Cranial nerves: Smile is symmetric. Forehead wrinkles bilaterally. Tongue protrudes midline. EOMI. Motor: There is no pronator drift. Cerebellar: Finger to nose is intact bilaterally. Skin: Warm and dry Internal Med - H&P Results - Labs CBC & Chem 7: 03/14/18 19:37 03/14/18 19:37 Labs: Short CBC 03/14/18 Range/Units 19:37 WBC 8.6 (4.3-11.1) K/mcL Hgb 13.9 (11.5-15.4) g/dL Hct 41.4 (35.3-44.9) % Plt Count 338 (140-400) K/mcL Neutrophils # 5.2 (1.6-8.9) K/mcL BMP 03/14/18 19:37 Sodium 136 Potassium 3.5 Chloride 101 Carbon Dioxide 28 BUN 9 Creatinine 0.66 Glucose 121 H Calcium 9.5 Cardiac Enzymes 03/14/18 03/15/18 03/15/18 Range/Units 19:37 00:38 07:14 Troponin I < 0.03 < 0.03 < 0.03 (< 0.04) ng/mL Liver Function 03/14/18 Range/Units 19:37 Total Bilirubin 0.3 (0.3-1.0) mg/dL AST 15 (13-39) Units/L ALT 9 (7-52) Units/L Alkaline Phosphatase 92 (34-104) Units/L Albumin 3.9 (3.5-5.7) g/dL - Impressions ITS Impressions Chest X-Ray 03/14/18 19:16 IMPRESSION: No acute process. D/ / Felipe Pope MD / Felipe Pope MD Interpreting Provider: Felipe Pope MD Chest CTA 03/14/18 20:56 IMPRESSION: 1. Negative CT angiogram for acute pulmonary embolism. 2. No acute cardiopulmonary process identified. D/ / Galen Alexander MD / Galen Alexander MD Interpreting Provider: Galen Alexander MD
[2018-03-15 13:26] LABS: Bilirubin,Urine Negative (Negative); Blood,Urine Trace-intact (Negative); Clarity,Urine Clear (Clear); Color,Urine Yellow (Yellow); Glucose,Urine (UA) Normal (Normal); Ketones,Urine Negative (Negative); Leukocyte Esterase,Urine Large (Negative); Nitrite,Urine Negative (Negative); PH,Urine 6.5 pH Units (5.0-8.0); Protein,Urine Negative (Neg-Trace); Specific Gravity,Urine <= 1.005 (1.010-1.025); Urobilinogen,Urine Normal (Normal)
[2018-03-15 13:33] LABS: Bacteria,Urine Moderate per hpf (None-Few); RBC,Urine 0-3 per hpf (0-3); Squamous Epithelial Cell,Urine Moderate per lpf (None-Few)
[2018-03-15] MEDS ORDERED: cefTRIAXone 1,000 MG in Water for inj. (sterile) 20 ML 10 ML IVP SCH (16:00)
[2018-03-15] MEDS ORDERED: traMADol 50 MG TABLET PO PRN (17:45)
[2018-03-15] MEDS: Acetaminophen 325 MG TABLET PO SCH (18:14)
[2018-03-15] MEDS ORDERED: Latanoprost 2.5 ML BOTTLE BOTH EYES SCH (21:00)
[2018-03-15] MEDS: Lactobacillus 1 EACH CAP.SPRINK PO SCH (22:10)
[2018-03-16] MEDS: Acetaminophen 325 MG TABLET PO SCH ×2 (00:30→06:42)
[2018-03-16 06:32] LABS: Basophils % 0.5 %; Eosinophils # 0.3 K/mcL (0.0-0.6); Eosinophils % 3.3 %; Hemoglobin 13.2 g/dL (11.5-15.4); Immature Granulocytes % 0.2 % (0-4); Lymphocytes # 2.4 K/mcL (0.6-4.6); Lymphocytes % 27.5 %; Mean Corpuscular HGB Conc 32.2 g/dL (31.6-35.5); Mean Corpuscular Hemoglobin 30.8 pg (28.0-33.3); Mean Corpuscular Volume 95.6 fL (83.0-100.0); Mean Platelet Volume 9.8 fL (9.4-12.4); Monocytes # 0.6 K/mcL (0.0-1.3); Monocytes % 6.9 %; Neutrophils # 5.4 K/mcL (1.6-8.9); Platelet Count 324 K/mcL (140-400); Red Blood Count 4.29 M/mcL (3.82-4.97); Red Cell Distribution Width 13.6 % (11.5-14.5); Segmented Neutrophils % 61.6 %
[2018-03-16 06:57] LABS: BUN/Creatinine Ratio 15 (6-26); Blood Urea Nitrogen 12 mg/dL (8-23); Calcium 9.2 mg/dL (8.6-10.3); Carbon Dioxide 30 mEq/L (23-29); Chloride 102 mEq/L (98-107); Glucose 102 mg/dL (70-105); Osmolality,Calculated 286 (280-300); Sodium 138 mEq/L (136-145); eGFR For Non-African Americans > 60 (> 60)
[2018-03-16] MEDS: Lactobacillus 1 EACH CAP.SPRINK PO SCH (08:53)
[2018-03-16] MEDS: Famotidine 20 MG TABLET PO SCH (08:53)
[2018-03-16] MEDS: Aspirin Enteric Coated 81 MG Tablet PO SCH (08:54)
[2018-03-16] MEDS: *HR* Metformin 500 MG TABLET PO SCH (08:54)
--- NOTE | 2018-03-16 10:52 | Discharge Summary ---
Orders not resulted at time of discharge: Pending orders 03/15/18 13:19 Culture,Urine [RM] Routine Date of Encounter: 03/16/18 Time of Encounter: 10:45 - Discharge Diagnosis (1) Right flank pain Priority: Primary Status: Resolved (2) Hypertension Priority: Secondary Status: Chronic Qualifiers: Hypertension type: essential hypertension Qualified Code(s): I10 - Essential (primary) hypertension Hospital course: Ms. Smith is a 72 year old female who came to emergency room stating she had sudden onset of right flank pain while lying in bed approximately 0700 the day of admission. She states the pain did not radiate. She rates the severity as a 10/10. There was some shortness of breath associated. She denies cough fevers chills vomiting or diarrhea. When the pain did not resolve she came to emergency room and was evaluated. She was admitted to [facility] floor for ongoing care needs. Initial orders written by the emergency room physician. I saw her on March 15 and performed the history and physical. Chest CTA in emergency room showed no evidence of luminary embolism or other worrisome lung pathology. I ordered lipase level which returned normal. UA C/S was ordered which showed likely contaminated specimen with moderate squamous epithelial cells seen. There was large amount of leukocyte esterase. She was started empirically on Cipro. When I saw her on March 16 she stated she felt significantly improved and back to her baseline. The pain in her right flank was completely resolved. Etiology of the pain was not determined with certainty. She will continue Cipro and Lactobacillus for 3 additional days at discharge. She will follow with her PCP JEFFREY Moses CNP within 1 week. - Time Spent with Patient Total time spent providing and/or coordinating discharge services: - Discharge Medications Prescriptions: Ciprofloxacin [Cipro] 500 mg PO BID #6 tablet Lactobacillus [Culturelle] 1 each PO BID #6 cap.[email or web address] Home Medications: Loratadine [Claritin] 10 mg PO DAILY 04/24/15 [History] Paroxetine [Paxil] 20 mg PO DAILY 04/24/15 [History] Simvastatin [Zocor] 40 mg PO HS 04/24/15 [History] Aspirin [Adult Low Dose Aspirin EC] 81 mg PO DAILY 04/25/15 [History] Fluticasone/Vilanterol [Breo Ellipta 100-25 Mcg INH] 1 puff IH DAILY 03/11/17 [History] Lansoprazole [Prevacid] 30 mg PO DAILY 03/11/17 [History] Latanoprost [Xalatan] 1 drop BOTH EYES HS 03/11/17 [History] Losartan Potassium [Cozaar] 50 mg PO DAILY 03/11/17 [History] Metformin HCl [Glucophage] 1,000 mg PO BID 03/11/17 [History] Montelukast [Singulair] 10 mg PO HS 03/11/17 [History] Ranitidine HCl [Acid Plunger Shovel Operator] 150 mg PO BID 03/11/17 [History] Ciprofloxacin [Cipro] 500 mg PO BID #6 tablet 03/16/18 [Rx] Lactobacillus [Culturelle] 1 each PO BID #6 cap.sprink 03/16/18 [Rx] Allergies/Adverse Reactions: Allergy/AdvReac Type Severity Reaction Status Date / Time Benzonatate AdvReac Rash Verified 03/14/18 18:00 [From Tessalon Perles] celecoxib [From Celebrex] AdvReac Rash Verified 03/14/18 18:00 naproxen [From Aleve] AdvReac Rash Verified 03/14/18 18:00 pseudoephedrine AdvReac Rash Verified 03/14/18 18:00 [From Actifed] triprolidine [From Actifed] AdvReac Rash Verified 03/14/18 18:00 Date of admission: 03/14/18 22:21 Primary care physician: Terrance Moses CNP - Constitutional Vitals: Temp Pulse Resp BP Pulse Ox 97.6 F 74 14 128/54 93 03/16/18 07:24 03/16/18 07:24 03/16/18 07:24 03/16/18 07:24 03/16/18 07:24 - Patient Status Disposition: Home, Self-Care Condition: Fair - Discharge Instructions Follow Up With: Terrance Moses CNP [Primary Care Provider] - 1 week - Diet and Activity Activity: resume usual activities as tolerated Diet: advance to your usual diet
[2018-03-16 10:58] VITALS: BP 126/79
--- NOTE | 2018-03-16 17:23 | Electrocardiograph Report ---
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
== END 2018-03-16 12:38 | disposition home or self-care (01) ==
LOC: INPPIK 19:01 → EMEROOPIK 19:01 → INPPIK 22:46
PROVIDERS: ADMIT Internal Medicine; ATTEND Internal Medicine